=== PATIENT | male | born 1955 | race Caucasian/White ===

== ENCOUNTER 2017-05-21 04:36 | Inpatient (IN) | payer OTHER ==
[~2017-05-21] VITALS: Ht 180.3 cm; Wt 116.0 kg
[~2017-05-21 04:36] MED LIST: ACID CONTROL75 MG PO; ADULT LOW DOSE81 M1 PO; ASPIRIN81 M1 PO; CLARITIN10 MG PO; Ceftin PO; ECOTRIN325 MG PO; Ecotrin PO; Habitrol,Nicoderm CQ TD; LOPRESSOR25 MG PO; PLAVIX75 MG PO; Plavix PO; Proventil,Ventolin H IH; SIMVASTATIN20 MG PO; TOPROL XL6.25 MG PO; Tums,OsCal PO; Vibramycin, Doryx PO; ZOCOR20 MG PO; predniSONE PO
[2017-05-21 05:23] LABS: BASOPHIL COUNT 0.1 K/uL (0-0.1); EOSINOPHIL (%) 1.2 % (0-5); EOSINOPHIL COUNT 0.2 K/uL (0-0.3); HEMATOCRIT 49.4 % (38.0-50.0); IMMATURE GRANULOCYTE (%) 0.6 % (0.0-0.7); IMMATURE GRANULOCYTE COUNT 0.1 K/uL; INSTRUMENT ABS NEUTROPHIL CT 10.7 K/uL; LYMPHOCYTE COUNT 2.3 K/uL (1.0-2.8); MCH 31.5 PG (29.0-34.0); MCHC 34.6 G/DL (30.0-36.0); MEAN PLAT.VOLUME 10.6 uM^3 (9.0-12.4); MONOCYTE (%) 9.1 % (3-12); MONOCYTE COUNT 1.3 K/uL (0-0.8); NEUTROPHIL (%) 73.2 % (45-76); NEUTROPHIL COUNT 10.7 K/uL (1.8-6.4); PLATELET COUNT 151 K/uL (156-360); RBC DIS.WIDTH-CV 12.3 % (11.8-14.6); RBC DIS.WIDTH-SD 40.9 % (39-53); RED BLOOD COUNT 5.43 M/uL (4.00-5.50); WHITE BLOOD COUNT 14.6 K/uL (4.1-10.2)
[2017-05-21 05:35] LABS: CHLORIDE 100 mEq/L (99-109); POTASSIUM 4.2 mEq/L (3.7-5.4); SODIUM 138 mEq/L (136-147)
[2017-05-21 05:37] LABS: GLUCOSE 117 mg/dL (70-99)
[2017-05-21 05:38] LABS: ANION GAP 10 MEQ/L (2-14)
[2017-05-21 05:39] LABS: TOTAL BILIRUBIN 0.4 mg/dL (0.0-1.0)
[2017-05-21 05:40] LABS: ALKALINE PHOSPHATASE 42 IU/L (3-129)
[2017-05-21 05:41] LABS: GFR ESTIMATE (CALCULATED) > 59 mL/min/
[2017-05-21 05:42] LABS: UREA NITROGEN (BUN) 20 mg/dL (9-23)
[2017-05-21 05:44] LABS: LIPASE 30 U/L (1.0-51.0)
[2017-05-21] MEDS ORDERED: LASIX20 MG PO (06:12)
[2017-05-21] MEDS ORDERED: LIPITOR40 MG PO (06:12)
[2017-05-21] MEDS ORDERED: TOPROL XL25 MG PO (06:12)
[2017-05-21] MEDS ORDERED: aspirin (06:12)
[2017-05-21 10:10] VITALS: BP 119/66
[2017-05-21 10:21] LABS: ADD MIUA? YES; BILIRUBIN NEGATIVE; BLOOD LARGE; COLOR YELLOW ((YELLOW)); GLUCOSE (STRIP) NEGATIVE; KETONES NEGATIVE; LEUKOCYTES NEGATIVE; NITRITE NEGATIVE; PROTEIN (STRIP) 100; UROBILINOGEN 0.2 MG/DL (0.2-1.0)
[2017-05-21 10:30] LABS: SPECIFIC GRAVITY 1.064 (1.000-1.030)
[2017-05-21 10:32] LABS: BACTERIA NONE SEEN /HPF; EPITHELIAL CELLS RARE /HPF; MUCUS TRACE /LPF; RED BLOOD CELLS TNTC /HPF (0-5); UCUL ADDED? YES; WHITE BLOOD CELLS 0-5 /HPF (0-5)
[2017-05-21 13:56] LABS: HEMATOCRIT 37.9 % (38.0-50.0); MCV 92.4 FL (86-99)
[2017-05-21 15:46] VITALS: BP 108/63
[2017-05-21] MEDS ORDERED: SAW PALMETTO500 MG PO (16:54)
[2017-05-21] MEDS ORDERED: LO-DOSE ASPIRIN81 M1 PO (16:54)
[2017-05-21] MEDS ORDERED: ADVIL200 MG PO (16:55)
[2017-05-21] MEDS ORDERED: VENTOLIN HFA18 GM IH (16:56)
[2017-05-21] MEDS ORDERED: ANORO ELLIPTA1 EACH IH (16:56)
[2017-05-21 19:38] VITALS: BP 108/65
[2017-05-21 20:12] LABS: HEMATOCRIT 42.4 % (38.0-50.0); MCV 93.8 FL (86-99)
[2017-05-22 00:37] VITALS: BP 116/68
[2017-05-22 03:12] VITALS: BP 112/69
[2017-05-22 06:42] LABS: HEMATOCRIT 37.5 % (38.0-50.0); MCH 31.8 PG (29.0-34.0); MCHC 33.9 G/DL (30.0-36.0); MCV 93.8 FL (86-99); MEAN PLAT.VOLUME 10.8 uM^3 (9.0-12.4); PLATELET COUNT 124 K/uL (156-360); RBC DIS.WIDTH-CV 12.5 % (11.8-14.6); RBC DIS.WIDTH-SD 43.7 % (39-53); WHITE BLOOD COUNT 12.5 K/uL (4.1-10.2)
[2017-05-22 06:59] LABS: ALKALINE PHOSPHATASE 28 IU/L (3-129); ANION GAP 5 MEQ/L (2-14); CHLORIDE 104 MEQ/L (99-109); GFR ESTIMATE (CALCULATED) > 59 mL/min/; GLUCOSE 102 mg/dL (70-99); POTASSIUM 4.5 MEQ/L (3.7-5.4); SAMPLE HEMOLYSIS CHECK 0; SAMPLE ICTERIC CHECK 0; SAMPLE LIPEMIA CHECK 0; SODIUM 137 MEQ/L (136-147); TOTAL BILIRUBIN 0.5 MG/DL (0.0-1.0); UREA NITROGEN (BUN) 16 mg/dL (9-23)
[2017-05-22 08:00] VITALS: BP 129/75
[2017-05-22 11:15] VITALS: BP 114/75
[2017-05-22 15:39] VITALS: BP 134/71
[2017-05-22] MEDS ORDERED: OXYCODONE HCL5 MG PO (16:26)
== END 2017-05-22 17:40 | disposition home or self-care (01) | DRG 700 ==
LOC: EME 04:36 → EDOF 08:25 → 3EAST 08:25 → ENRESERV 08:26 → EDOF 08:54 → ENRESERV 09:16 → 3EAST 09:52
PROVIDERS: Emergency Medicine; Surgery
DX: N28.89 Other specified disorders of kidney and ureter (principal); E66.9 Obesity, unspecified; Z91.19 Patient's noncompliance with other medical treatment and regimen; K21.9 Gastro-esophageal reflux disease without esophagitis; I25.10 Atherosclerotic heart disease of native coronary artery without angina pectoris; E78.5 Hyperlipidemia, unspecified; F17.200 Nicotine dependence, unspecified, uncomplicated; J44.9 Chronic obstructive pulmonary disease, unspecified; N28.1 Cyst of kidney, acquired; G47.30 Sleep apnea, unspecified; I48.91 Unspecified atrial fibrillation; I25.2 Old myocardial infarction; Z95.5 Presence of coronary angioplasty implant and graft; Z79.82 Long term (current) use of aspirin
CPT/HCPCS: 74177; 80053; 81003; 83690; 85014; 85018; 85025; 85027; 86850; 86900; 86901; 87086; 94640; 94640 76; 94760; 94799; 99281; 99285; J1170; J3010; J3480; J7030; J7120

== ENCOUNTER 2017-10-03 17:48 | Emergency (ER) | payer OTHER ==
[~2017-10-03] VITALS: Ht 180.3 cm; Wt 109.5 kg
[~2017-10-03 17:48] MED LIST changes: +ADVIL200 MG PO; +ANORO ELLIPTA1 EACH IH; +LASIX20 MG PO; +LIPITOR40 MG PO; +LO-DOSE ASPIRIN81 M1 PO; +OXYCODONE HCL5 MG PO; +SAW PALMETTO500 MG PO; +TOPROL XL25 MG PO; +VENTOLIN HFA18 GM IH; +aspirin
[2017-10-03] MEDS ORDERED: ANTIVERT25 MG PO (18:41)
[2017-10-03 19:04] LABS: HEMATOCRIT 47.7 % (38.0-50.0); HEMOGLOBIN 16.6 G/DL (12.5-16.6); MCH 31.4 PG (29.0-34.0); MCHC 34.8 G/DL (30.0-36.0); MCV 90.2 FL (86-99); PLATELET COUNT 164 K/uL (156-360); RBC DIS.WIDTH-CV 12.5 % (11.8-14.6); RBC DIS.WIDTH-SD 41.3 % (39-53); RED BLOOD COUNT 5.29 M/uL (4.00-5.50); WHITE BLOOD COUNT 10.2 K/uL (4.1-10.2)
[2017-10-03 19:12] LABS: CHLORIDE 106 mEq/L (99-109); POTASSIUM 4.1 mEq/L (3.7-5.4); SODIUM 139 mEq/L (136-147)
[2017-10-03 19:13] LABS: MAGNESIUM 1.9 mg/dL (1.3-2.7)
[2017-10-03 19:14] LABS: GLUCOSE 99 mg/dL (70-99)
[2017-10-03 19:17] LABS: CREATININE 0.8 mg/dL (0.6-1.3); GFR ESTIMATE (CALCULATED) > 59 mL/min/ (58.99-99999)
[2017-10-03 19:18] LABS: UREA NITROGEN (BUN) 15 mg/dL (9-23)
[2017-10-03 21:24] VITALS: BP 95/70
== END 2017-10-03 21:25 | disposition home or self-care (01) ==
LOC: EME 17:48
PROVIDERS: Emergency Medicine Emergency Medical Services
DX: R42 Dizziness and giddiness (principal); J44.9 Chronic obstructive pulmonary disease, unspecified; K21.9 Gastro-esophageal reflux disease without esophagitis; E78.5 Hyperlipidemia, unspecified; I25.2 Old myocardial infarction; F17.200 Nicotine dependence, unspecified, uncomplicated
CPT/HCPCS: 80048; 83735; 85027; 93005; 99281; 99284; J2405